=== PATIENT | female | born 1955 | race American Indian/Alaskan Native ===

== ENCOUNTER 2016-03-26 13:12 | Outpatient (CLI) | payer OTHER ==
[2016-03-26 13:39] LABS: Hematocrit 46.1 % (30.3-42.9); Hemoglobin 15.4 gm/dl (10.1-14.3); Mean Corpuscular HGB Conc 34 % (30-34); Mean Corpuscular Hemoglobin 30 pg (28-32); Mean Corpuscular Volume 91 fl (79-97); Platelet Count 266 K/mm3 (140-440); Red Blood Count 5.09 M/mm3 (3.65-5.03); Red Cell Distribution Width 13.3 % (13.2-15.2); White Blood Count 6.9 K/mm3 (4.5-11.0)
[2016-03-26 13:58] LABS: Erythrocyte Sedimentation Rate 1 mm/Hr (0-20)
[2016-03-26 14:04] LABS: Alanine Aminotransferase 27 units/L (7-56); Albumin 3.9 g/dL (3.9-5); Albumin/Globulin Ratio 1.1 %; Alkaline Phosphatase 83 units/L (35-129); Anion Gap 18 mmol/L; Bilirubin,Total 0.6 mg/dL (0.1-1.2); Blood Urea Nitrogen 12 mg/dL (7-17); Calcium 9.4 mg/dL (8.4-10.2); Carbon Dioxide 26 mmol/L (22-30); Chloride 94.2 mmol/L (98-107); Glucose 103 mg/dL (65-100); Potassium 3.8 mmol/L (3.6-5.0); Sodium 134 mmol/L (137-145); Total Protein 7.5 g/dL (6.3-8.2)
[2016-03-28 17:21] LABS: Vitamin D, 25-OH, Total 67 ng/mL (30-100)
== END 2016-03-26 13:13 | disposition home or self-care (01) ==
LOC: LAB 13:12
PROVIDERS: ATTEND Specialist
DX: G65.1 Sequelae of other inflammatory polyneuropathy (principal)
CPT/HCPCS: 36415; 80053; 82164; 82306; 82607; 83036; 83921; 84443; 85027; 85652; 86038; 86225; 86334; 86592; 86618

== ENCOUNTER 2020-02-17 20:13 | Emergency (ER) | payer OTHER, MEDICARE ==
[2020-02-17 21:32] LABS: Basophils % (Auto) 0.6 % (0.0-1.8); Eosinophils # (Auto) 0.2 K/mm3 (0.0-0.4); Eosinophils % (Auto) 2.7 % (0.0-4.3); Hematocrit 43.3 % (30.3-42.9); Hemoglobin 14.6 gm/dl (10.1-14.3); Lymphocytes % (Auto) 33.3 % (13.4-35.0); Mean Corpuscular HGB Conc 34 % (30-34); Mean Corpuscular Volume 93 fl (79-97); Monocytes # (Auto) 0.6 K/mm3 (0.0-0.8); Monocytes % (Auto) 10.6 % (0.0-7.3); Platelet Count 231 K/mm3 (140-440); Red Blood Count 4.67 M/mm3 (3.65-5.03); Red Cell Distribution Width 13.3 % (13.2-15.2)
[2020-02-17 21:48] LABS: BUN/Creatinine Ratio 12; Blood Urea Nitrogen 11 mg/dL (7-17); Calcium 10.1 mg/dL (8.4-10.2); Hemolysis Index 5
--- NOTE | 2020-02-17 21:59 | XRay Report ---
CHEST 1 VIEW 02/17/2020 8:40 PM INDICATION / CLINICAL INFORMATION: Chest Pain. COMPARISON: 12/13/2012 FINDINGS: SUPPORT DEVICES: None. HEART / MEDIASTINUM: Stable. LUNGS / PLEURA: 1.5 cm pulmonary nodule in the left upper lung which may be at least partially calcif ied and is new when compared to 12/13/2012. No acute pulmonary or parenchymal abnormality. No pneumot horax. ADDITIONAL FINDINGS: No significant additional findings. IMPRESSION: 1. 1.5 cm left upper lung nodule. Consider further evaluation with dedicated CT chest. Signer Name: Ez Keating MD Signed: 02/17/2020 9:55 PM Workstation Name: [id number]
[2020-02-18] MEDS ORDERED: hydrALAZINE 25 MG TAB PO ONE (00:45)
[2020-02-18] MEDS ORDERED: SODIUM CHLORIDE 0.9% 1000 ML 1,000 ML IV ONE ×2 (02:19)
--- NOTE | 2020-02-18 04:10 | Emergency Department Report ---
ED General Adult HPI - General Chief complaint: High BP Stated complaint: HIGH BLOOD PRESSURE CHEST PAIN Time Seen by Provider: 02/18/20 03:24 Source: patient Mode of arrival: Ambulatory Limitations: No Limitations - History of Present Illness Initial comments: 65-year-old -[place] female patient presents with complaints of elevated blood pressure x today. She reports a history of hypertension and states she has been out of her lisinopril for the past 2 weeks. Patient states that she had a home visit from her nurse practitioner and noticed her blood pressure was elevated in the 170s. She states her blood pressure increased to around 200/100 today prior to coming into the ED. She denies any chest pain, shortness of breath, headache, dizziness, confusion, numbness/tingling/weakness in her limbs, difficulty with speech/ambulation, or history of CVA. Severity scale (0 -10): 0 - Related Data Home Medications Medication Instructions Recorded Confirmed Last Taken Acetaminophen [Acetaminophen TAB] 500 mg PO Q6HR 12/13/12 12/13/12 Unknown Ipratropium/Albuter (Nf) 2 puff IH QID 12/13/12 12/13/12 Unknown [Combivent Inhaler] Ipratropium/Albuterol Sulfate 4 gm IH 12/13/12 12/13/12 Unknown [Combivent Respimat] Lisinopril/Hydrochlorothiazide 1 tab PO QDAY 12/13/12 12/13/12 Unknown [Zestoretic 20-25 mg] Omeprazole [PriLOSEC] 20 mg PO 12/13/12 12/13/12 Unknown Prednisone 20 mg PO 12/13/12 12/13/12 Unknown atenoloL [Tenormin] 50 mg PO DAILY 12/13/12 12/13/12 Unknown Allergies Allergy/AdvReac Type Severity Reaction Status Date / Time No Known Allergies Allergy Unverified 12/13/12 20:43 ED Review of Systems ROS: Stated complaint: HIGH BLOOD PRESSURE CHEST PAIN Other details as noted in HPI Constitutional: denies: chills, diaphoresis, fever, malaise Eyes: denies: eye pain, vision change Respiratory: denies: cough, shortness of breath Cardiovascular: denies: chest pain Gastrointestinal: denies: abdominal pain Genitourinary: denies: urgency, dysuria, frequency, hematuria Skin: denies: rash, change in color Neurological: denies: headache, numbness, paresthesias ED Past Medical Hx - Past Medical History Hx Hypertension: Yes Hx Congestive Heart Failure: No Hx Diabetes: No Hx GERD: Yes Hx Asthma: No Hx COPD: Yes - Surgical History Past Surgical History?: No Additional Surgical History: tubal ligation - Social History Smoking Status: Never Smoker - Medications Home Medications: Home Medications Medication Instructions Recorded Confirmed Last Taken Type Acetaminophen [Acetaminophen TAB] 500 mg PO Q6HR 12/13/12 12/13/12 Unknown History Ipratropium/Albuter (Nf) 2 puff IH QID 12/13/12 12/13/12 Unknown History [Combivent Inhaler] Ipratropium/Albuterol Sulfate 4 gm IH 12/13/12 12/13/12 Unknown History [Combivent Respimat] Lisinopril/Hydrochlorothiazide 1 tab PO QDAY 12/13/12 12/13/12 Unknown History [Zestoretic 20-25 mg] Omeprazole [PriLOSEC] 20 mg PO 12/13/12 12/13/12 Unknown History Prednisone 20 mg PO 12/13/12 12/13/12 Unknown History atenoloL [Tenormin] 50 mg PO DAILY 12/13/12 12/13/12 Unknown History ED Physical Exam - General Limitations: No Limitations General appearance: alert, in no apparent distress - Head Head exam: Present: atraumatic, normocephalic - Eye Eye exam: Present: PERRL. Absent: scleral icterus - Neck Neck exam: Present: normal inspection - Respiratory Respiratory exam: Present: normal lung sounds bilaterally. Absent: respiratory distress - Cardiovascular Cardiovascular Exam: Present: regular rate, normal rhythm, normal heart sounds - GI/Abdominal GI/Abdominal exam: Present: soft. Absent: distended, tenderness - Back Exam Back exam: Present: full ROM - Neurological Exam Neurological exam: Present: alert, oriented X3, normal gait. Absent: motor sensory deficit - Psychiatric Psychiatric exam: Present: normal affect, normal mood - Skin Skin exam: Present: warm, dry, intact, normal color. Absent: rash ED Course Vital Signs 02/17/20 02/18/20 02/18/20 20:19 00:46 01:14 Temperature 98.8 F 98.1 F Pulse Rate 100 H 88 88 Respiratory 18 18 Rate Blood Pressure 231/122 209/108 Blood Pressure 209/106 [Right] O2 Sat by Pulse 96 Oximetry 02/18/20 02/18/20 02/18/20 02:36 02:40 02:50 Temperature Pulse Rate 99 H 101 H 111 H Respiratory 18 21 23 Rate Blood Pressure 153/89 192/102 Blood Pressure [Right] O2 Sat by Pulse 100 99 Oximetry 02/18/20 02/18/20 02/18/20 03:00 03:11 03:20 Temperature Pulse Rate 109 H 107 H 106 H Respiratory 16 16 16 Rate Blood Pressure 192/102 196/99 196/99 Blood Pressure [Right] O2 Sat by Pulse 100 99 Oximetry 02/18/20 02/18/20 02/18/20 03:30 03:40 03:51 Temperature Pulse Rate 110 H 106 H 103 H Respiratory 15 16 17 Rate Blood Pressure 175/96 175/96 122/70 Blood Pressure [Right] O2 Sat by Pulse 99 99 96 Oximetry 02/18/20 04:00 Temperature Pulse Rate 99 H Respiratory 17 Rate Blood Pressure 104/76 Blood Pressure [Right] O2 Sat by Pulse 96 Oximetry ED Medical Decision Making - Lab Data Result diagrams: 02/17/20 21:07 02/17/20 21:07 - Medical Decision Making 65-year-old -[place] female patient presents with complaints of elevated blood pressure x today. She reports a history of hypertension and states she has been out of her lisinopril for the past 2 weeks. Patient states that she had a home visit from her nurse practitioner and noticed her blood pressure was elevated in the 170s. She states her blood pressure increased to around 200/100 today prior to coming into the ED. She denies any chest pain, shortness of breath, headache, dizziness, confusion, numbness/tingling/weakness in her limbs, difficulty with speech/ambulation, or history of CVA. Patient was given hydralazine 50 mg p.o.-blood pressure decreased significantly into the 70s/30s. Patient given 1 L saline. Blood pressure 140/83. Patient did develop a headache during the hypotensive episode-she reports history of migraines and headaches and rates the headache as a 6/10 in severity and denies worst headache of her life. Patient given Tylenol and states headache has improved. Her labs are normal. She is well-appearing and stable for discharge home. Strict return precautions were discussed in detail with patient who verbalizes understanding. Critical care attestation.: If time is entered above; I have spent that time in minutes in the direct care of this critically ill patient, excluding procedure time. ED Disposition Clinical Impression: Elevated blood pressure reading Disposition: DC-01 TO HOME OR SELFCARE Is pt being admited?: No Condition: Stable Instructions: Managing Your Hypertension Referrals: PRIMARY CARE [Primary Care Provider] - 2-3 Days
[2020-02-18] MEDS ORDERED: ACETAMINOPHEN 325 MG TAB PO ONE (04:40)
[2020-02-18 06:01] VITALS: BP 151/94
== END 2020-02-18 06:20 | disposition home or self-care (01) ==
LOC: ED 20:13
DX: R03.0 Elevated blood-pressure reading, without diagnosis of hypertension (principal); K21.9 Gastro-esophageal reflux disease without esophagitis; J44.1 Chronic obstructive pulmonary disease with (acute) exacerbation; Z98.51 Tubal ligation status; Z79.899 Other long term (current) drug therapy
CPT/HCPCS: 36415; 71045; 80048; 84484; 85025; 93005; 96360; 99284; J7030